=== PATIENT | female | born 2005 | race Caucasian/White ===

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

== ENCOUNTER 2025-04-15 19:07 | Emergency (ER) | payer OTHER, SELFPAY ==
[2025-04-15 19:08] VITALS: BP 127/76; PULSE 81; RESP 16; TEMP 37.1; O2SAT 100; BMI 39.1
== END 2025-04-15 19:28 | disposition left against medical advice (07) ==
LOC: ED 20:01
DX: R10.9 Unspecified abdominal pain (principal)

== ENCOUNTER 2025-04-16 14:43 | Emergency (ER) | payer OTHER, SELFPAY ==
[2025-04-16 14:44] VITALS: BP 149/74; PULSE 96; RESP 18; TEMP 36.8; O2SAT 98; BMI 39.6
[2025-04-16 16:44] VITALS: BP 116/70; PULSE 89; RESP 15; TEMP 36.6; O2SAT 100
[2025-04-16 18:00] VITALS: BP 111/68; PULSE 78; RESP 14; TEMP 37.1; O2SAT 99
[2025-04-16 18:11] VITALS: BP 111/68; O2SAT 99
--- NOTE | 2025-04-16 18:22 | CT_ITS ---
PROCEDURE: ABDOMEN/PELVIS W IV CONT ONLY 04/16/2025 REASON FOR EXAM: RLQ ABD PAIN TECHNIQUE: Procedure Code: [id number] Modality: CT Procedure: ABDOMEN/PELVIS W IV CONT ONLY Coronal and Sagittal reconstruction series were provided. CONTRAST: Isovue 370 VOLUME: 95 mL One or more dose reduction techniques were used (e.g., Automated exposure control, adjustment of the mA and/or kV according to patient size, use of iterative reconstruction technique. RADIATION DOSE SUMMARY: CTDlvol: 9+ 20 mGy DLP: 4+1 1100 mGycm FINDINGS: Lung Bases: Clear. Heart: Normal size. Liver: Normal in size and contour. No focal lesions. No biliary ductal dilatation. Gallbladder/Biliary: Gallbladder unremarkable. No gallstones, wall thickening, or pericholecystic fluid. No extrahepatic biliary dilatation. Pancreas: Normal size and contour. No masses, ductal dilatation, or peripancreatic stranding. Spleen: Normal in size and attenuation. No focal lesions. Adrenal Glands: Normal morphology. No nodules. Kidneys/Ureters: Normal size and contour. No renal masses, calculi, or hydronephrosis. Ureters normal in caliber. Bladder: Normal wall thickness. No mass or calculi. Stomach/Bowel: Stomach, small bowel, and colon normal in caliber. No wall thickening, obstruction, or inflammatory changes. Appendix normal. Mesentery/Peritoneum: No free air, ascites, masses, or lymphadenopathy. Aorta/Vessels: Abdominal aorta normal in caliber. No aneurysm or dissection. Iliac vessels unremarkable. Pelvic Organs: Uterus and adnexa (if female) unremarkable. Prostate and seminal vesicles (if male) unremarkable. Bones: No acute fracture or destructive lesions. Soft Tissues: No abnormal masses or collections. CT/Abdomen/Pelvis W IV Cont ONLY IMPRESSION: No acute abnormalities of the abdomen or pelvis. Reading Location: [address]
[2025-04-16 18:35] LABS: Mucous, Urine 0 SEEN /hpf (<or=2+)
[2025-04-16 19:01] LABS: Hematocrit 37.9 % (37-47); Hemoglobin 11.8 g/dL (12.0-15.0); Immature Granulocytes Count 0.070 X10^3/uL (0.0-0.0); Mean Corp Hgb Conc 31.1 g/dL (32-36); Mean Corpuscular Volume 77.0 fL (81-99); Mean Platelet Vol. 11.4 fl (6.2-12.0); NRBC Flagged by Analyzer 0 % (0-5); Platelet Count 444 K/mm3 (150-450); RBC Distribution Width CV 14.0 % (11.6-14.6); RBC Distribution Width SD 39.1 fl (35.1-43.9); Red Blood Count 4.92 M/mm3 (4.2-5.4); White Blood Count 12.6 K/mm3 (4.4-11.0)
[2025-04-16 19:25] LABS: Color, Urine Straw (Yellow); Glucose, Dipstick Normal (Normal); Ketone-Dipstick Negative (Negative); Leukocyte Esterase-Dipstick 25 /ul (Negative); Nitrite-Dipstick Negative (Negative); Occult Blood-Urine 10 /ul (Negative); Protein-Dipstick Negative (Negative); Specific Gravity, Urine 1.010 (1.002-1.030); Urine Bilirubin Dipstick Negative (Negative)
[2025-04-16 19:32] LABS: Internal QC Validated? YES +Cl - CLEAR BKGD; Pregnancy, Urine Negative Negative; Record Kit Lot#,Urine Preg 964736
[2025-04-16 19:33] LABS: AST(SGOT) 17 U/L (<=31); Alanine Aminotransfer ALT/SGPT 29 U/L (<=34); Albumin, Serum 4.7 g/dL (3.5-5.0); Alkaline Phosphatase 82 U/L (35-104); Anion Gap 15 (5-15); BUN 9 mg/dL (4-19); BUN/Creat Ratio 12.4 RATIO (10-20); Calcium,Total 10.0 mg/dL (7.6-11.0); Carbon Dioxide 21.0 mmol/L (21.0-32.0); Chloride 103 mmol/L (98-108); Estimated Creatinine Clearance 141.53 ml/min (50-250); Globulin 3.4 g/dL (2.2-4.2); Glucose 97 mg/dL (70-99); Lipase 36 U/L (13-75); Potassium 3.6 mmol/L (3.3-5.1)
[2025-04-16 20:23] VITALS: BP 114/66
[2025-04-16 20:55] LABS: Red Blood Cells-Urine 0-5 SEEN /hpf (0-5); Squamous Epithelial Cells - UA 0-5 SEEN /hpf (5-10)
--- NOTE | 2025-04-16 21:29 | ED.VIS.GI ---
HPI HPI - GI History of Present Illness Chief Complaint: Abd Pain Informant: patient Narrative Narrative: Patient is a 19-year-old female with history of endometriosis and prior exploratory laparoscopies presenting with worsening right lower quadrant abdominal pain. Patient states she called her establishment guide in [place] (she is a college [employer] student) and was told that she should come to the ER to have a CT scan. Patient notes her last menstrual cycle was March 21. She just switched control which is why she had a menstrual cycle. She denies any nausea or vomiting. Denies any fever. Denies abnormal vaginal discharge or bleeding. States she is having good bowel movements. Denies any blood in her stool. Denies any urinary symptoms. No other complaints or concerns at this time. [facility] Medical History Depression Endometriosis Home Medications ?Medication ?Instructions ?Recorded ?Last Taken ?Type escitalopram oxalate 10 mg tablet 10 mg PO DAILY 04/16/25 Unknown History escitalopram oxalate 5 mg tablet 5 mg PO DAILY 04/16/25 Unknown History levonorgestrel 0.15 mg-ethinyl 1 tab PO DAILY 04/16/25 Unknown History estradiol 30 mcg tablets,3 mos pack(91) (Setlakin) Allergy/AdvReac Type Severity Reaction Status Date / Time Penicillins Allergy Rash Verified 04/16/25 14:45 Social History Smoking Status: Never smoker ROS ROS ED Constitutional Constitutional ED: Denies chills or fever(s) Respiratory/Chest Respiratory/Chest: Denies cough Gastrointestinal Gastrointestinal: Reports abdominal pain; Denies constipation, diarrhea, nausea or vomiting Genitourinary Genitourinary ED: Denies dysuria, hematuria or urinary frequency Musculoskeletal Musculoskeletal: Denies arthralgias or myalgias Integumentary Denies rash Neurologic Neurologic: Denies weakness Hematologic/Lymphatic Hematologic/Lymphatic: Denies easy bleeding or easy bruising EXAM Physical Exam Const Vital Signs: 04/16/25 14:44 04/16/25 16:44 04/16/25 18:00 Temperature 98.2 F 97.8 F 98.7 F Temperature Source Oral Oral Oral Pulse Rate 96 89 78 Respiratory Rate 18 15 14 Blood Pressure 149/74 H 116/70 111/68 Blood Pressure Mean 99 85 82 Pulse Ox 98 100 99 Oxygen Delivery Method Room Air Room Air Room Air 04/16/25 18:11 04/16/25 20:23 Temperature Temperature Source Pulse Rate Respiratory Rate Blood Pressure 111/68 114/66 Blood Pressure Mean 82 82 Pulse Ox 99 Oxygen Delivery Method Positive well nourished and well developed General Appearance ED: well developed and NAD HEENT Reports moist mucous membranes Neck supple Resp normal respiratory effort and clear to auscultation bilaterally Cardio regular rate and regular rhythm GI non-distended GI Narrative: Negative Whitt sign. Pain is in the right lower quadrant but not specifically at McBurney's point. Patient does have elevated BMI which does limit physical exam slightly. Inspection: Negative for abdominal distention Auscultation: normoactive bowel sounds Palpation: soft and tender RLQ; Negative for guarding or rigid Back/Spine no CVA tenderness Extremity full ROM Neuro Sensorium / Orientation: alert, oriented to person, oriented to place and oriented to time Motor Exam: Negative for general weakness Psych mental status grossly normal and thought process normal Skin no wounds MDM MDM MDM Narrative Medical decision making narrative: Patient evaluated for worsening right lower quadrant abdominal pain. States this feels like her endometriosis but is worse. Differential includes appendicitis, ovarian cyst, pyelonephritis, renal colic, endometriosis associated pain, small bowel obstruction (lower suspicion she is not reporting any vomiting or constipation/change in bowel movements) CBC shows a mild leukocytosis with a white blood cell count of 12.6. She has mildly low hemoglobin at 11.8 which is microcytic. CMP is normal. Urinalysis is consistent with infection. Urine is negative. CT abdomen pelvis does not show any acute process to explain her symptoms. Patient offered pain medication including Toradol the emergency room but declines. Patient made a referral for local gynecology to establish in this area. Counseled alternate ibuprofen and Tylenol. At this time I do think she stable for outpatient follow-up and does not require more emergent surgical/gynecologic evaluation. She is agreeable. Given return precautions. Discharged home in stable condition. Lab Data Attestation: I reviewed the patient's lab results. Labs: Laboratory Results - last 24 hr 04/16/25 04/16/25 18:06 18:47 WBC 12.6 H RBC 4.92 Hgb 11.8 L Hct 37.9 MCV 77.0 L MCH 24.0 L MCHC 31.1 L RDW Std Deviation 39.1 RDW Coeff of Pau 14.0 Plt Count 444 MPV 11.4 Immature Gran % (Auto) 0.600 Neut % (Auto) 67.5 Lymph % (Auto) 22.7 [place] % (Auto) 7.9 Eos % (Auto) 0.9 Baso % (Auto) 0.4 Absolute Neuts (auto) 8.5 H Absolute Lymphs (auto) 2.85 Nucleated RBC % 0 Sodium 138 Potassium 3.6 Chloride 103 Carbon Dioxide 21.0 Anion Gap 15 BUN 9 Creatinine 0.70 Estim Creat Clear Calc 141.53 Est GFR (MDRD) Non-Af 127 BUN/Creatinine Ratio 12.4 Glucose 97 Calcium 10.0 Total Bilirubin 0.19 AST 17 ALT 29 Alkaline Phosphatase 82 Total Protein 8.1 Albumin 4.7 Globulin 3.4 Albumin/Globulin Ratio 1.4 Lipase 36 Urine Color Straw Urine Clarity Clear Urine pH 6.5 Ur Specific [place] 1.010 Urine Protein Negative Urine Glucose (UA) Normal Urine Ketones Negative Urine Occult Blood 10 H Urine Nitrite Negative Urine Bilirubin Negative Urine Urobilinogen Normal Ur Leukocyte Esterase 25 H Urine RBC 0-5 SEEN Urine WBC 0-5 SEEN Ur Squamous Epith Cells 0-5 SEEN Urine Bacteria RARE Urine Mucus 0 SEEN Urine Test Negative Radiography Diagnostic Testing: Clinical Impression(s) from Imaging Studies Abdomen/Pelvis CT 04/16/25 18:22 IMPRESSION: No acute abnormalities of the abdomen or pelvis. Reading Location: [address] Discharge Plan Triage Chief Complaint: Abd Pain ED Provider: Jennifer Reddy Dx/Rx/DC Orders Clinical Impression: Abdominal pain, right lower quadrant, Personal history of endometriosis Instructions: ED Abdominal Pain Unkn Cause Fem Prescriptions: No Action escitalopram oxalate 10 mg tablet 10 mg PO DAILY levonorgestrel-ethinyl estrad [Setlakin] 0.15 mg-30 mcg (91) tablets,dose pack,3 month 1 tab PO DAILY escitalopram oxalate 5 mg tablet 5 mg PO DAILY Primary Care Provider: JULITO THOMAS Referrals: JULITO THOMAS [Other] Kathy Galindo MD [Med Staff - Active Staff] - Activity Restrictions/Additional Instructions: Please follow-up with gynecology, begin referral today. Alternate ibuprofen and Tylenol for pain. Return if you have worsening or new symptoms or if you have further concerns Print Language: Singaporean Disposition Disposition: Home, Self Care
[2025-04-16 21:40] VITALS: BP 117/87; PULSE 81; RESP 16; TEMP 36.7; O2SAT 99
== END 2025-04-16 21:45 | disposition home or self-care (01) ==
PROVIDERS: Emergency Provider Emergency Medicine; Visit Provider Emergency Medicine
DX: R10.31 Right lower quadrant pain (principal); F32.A Depression, unspecified; Z79.899 Other long term (current) drug therapy; Z87.42 Personal history of other diseases of the female genital tract
CPT/HCPCS: 74177; 80053; 81001; 81025; 83690; 85025; 99284; Q9967; A4216